=== PATIENT | male | born 1960 | race Caucasian/White ===

== ENCOUNTER 2022-07-19 10:12 | Outpatient (CLI) | payer BC, SELFPAY | END 2022-07-19 10:13 | disposition home or self-care (01) | LOC: AMB 07-26 05:18 | PROVIDERS: Visit Provider Family Medicine | DX: R53.1 Weakness (principal) | CPT/HCPCS: A0425; A0426; A0428 ==

== ENCOUNTER 2022-08-05 13:43 | Outpatient (RCR) | payer BC, SELFPAY | END 2022-12-03 23:59 | disposition home or self-care (01) | PROVIDERS: Visit Provider Family Medicine | DX: I63.9 Cerebral infarction, unspecified (principal); Z51.89 Encounter for other specified aftercare | CPT/HCPCS: 97165 ==

== ENCOUNTER 2023-01-03 03:57 | Emergency (ER) | payer OTHER, SELFPAY ==
[2023-01-03] VITALS (7 sets, daily range): BP systolic 127–159; BP diastolic 74–92; PULSE 60–71; RESP 16; TEMP 36.6; O2SAT 97–99; BMI 21.5
--- NOTE | 2023-01-03 04:08 | ED.CHESTPAIN ---
HPI - Chest Pain General Time Seen by Provider: 04:08 Date Seen: 01/03/23 Chief Complaint: Chest Pain Stated Complaint: Chest Pain Time Seen by Provider: 01/03/23 04:07 Source: patient, RN notes reviewed and old records reviewed Mode of arrival: ambulatory Limitations: no limitations History of Present Illness HPI narrative: 62-year-old male with history of prior CVA who presents today with chest pain. Patient describes 2 episodes of chest pain tonight, for about 8 hours prior to coming and a 2nd about 4 hours prior to coming in. Both for left anterior lower chest , the first lasted about 5 seconds and the second lasted 1-2 seconds. No associated shortness of breath, nausea vomiting. Pain-free now. Related Data Home Medications Medication Instructions Recorded Confirmed losartan 100 1 tab PO DAILY 07/19/22 07/19/22 mg-hydrochlorothiazide 25 mg tablet amlodipine 5 mg tablet 5 mg PO DAILY 01/03/23 01/03/23 aspirin 81 mg tablet,delayed 81 mg PO DAILY 01/03/23 01/03/23 release atorvastatin 20 mg tablet 20 mg PO QPM 01/03/23 01/03/23 escitalopram oxalate 10 mg tablet 10 mg PO DAILY 01/03/23 01/03/23 metoprolol succinate 25 mg 25 mg PO DAILY 01/03/23 01/03/23 tablet,extended release 24 hr Allergies Allergy/AdvReac Type Severity Reaction Status Date / Time No Known Drug Allergies Allergy Verified 01/03/23 04:05 [facility] Medical History Hypertension ?I10 - Essential (primary) hypertension (ICD-10) Social History Smoking Status: Current some day smoker Second hand tobacco smoke exposure: No How often do you have a drink containing alcohol: never How often do you have six or more drinks on one occasion: Never AUDIT-C Alcohol total score: 0 Non-prescribed substance use: denies use Exam Narrative Exam Narrative: General: Well-developed and well-nourished, no acute distress Head: Atraumatic and normocephalic Eyes: Pupils are equal reactive, extraocular motions intact, conjunctiva clear ENT: External nose and ears are normal, posterior pharynx without erythema or exudate Neck: No midline cervical tenderness, full spontaneous range of motion the neck, trachea midline, no adenopathy Heart: Regular rate and rhythm no murmurs or thrills Lungs: Clear to auscultation bilaterally without wheezes or crackles Abdomen: Soft, nontender, nondistended with active bowel sounds Musculoskeletal: No tenderness, deformity, or edema Neurologic: Awake, alert, and oriented x3, no gross focal neurologic deficits, cranial nerves intact as tested Psych: Mood and affect are appropriate Skin: No rashes Const Vital Signs, click to edit/add: Vital Signs - 24 hr 01/03/23 04:00 01/03/23 04:02 01/03/23 04:13 Temperature 97.9 F Pulse Rate 66 Pulse Rate [Pulse Oximeter] 71 Respiratory Rate 16 16 Blood Pressure 159/92 H Blood Pressure [Right Upper Arm] 141/88 H Pulse Oximetry 99 98 99 Oxygen Delivery Method Room Air 01/03/23 04:31 Temperature Pulse Rate 64 Pulse Rate [Pulse Oximeter] Respiratory Rate 16 Blood Pressure 127/88 Blood Pressure [Right Upper Arm] Pulse Oximetry 97 Oxygen Delivery Method Course Course ED Course: Patient seen examined, reviewed prior emergency department visit from June 2022 would patient was seen with acute CVA and transferred to [facility]. Patient does state with chest pain about 8 hours prior to coming emergency department, no pain currently. EKG is reassuring, labs are ordered. Pain described as sharp and lasting seconds at a time, not typical of cardiac symptoms. Reevaluation(s) Time of Reevaluation #1: 04:40 Reevaluation #1: Labs independently interpreted by me with troponin 0, given time since onset of symptoms repeat troponin is not indicated. CBC does not demonstrate any acute anemia or leukocytosis. Remaining labs and chest x-ray pending. Anticipate discharge. Time of Reevaluation #2: 05:06 Reevaluation #2: BNP is normal. Chest x-ray independently interpreted by me does not demonstrate any acute findings. Patient is stable for discharge. Vital Signs Vital signs: Initial Vital Signs Pulse Oximetry 99 01/03/23 04:00 Vital Signs Pulse Oximetry 99 01/03/23 04:00 Temperature 97.9 F 01/03/23 04:02 Pulse Rate 64 01/03/23 04:31 Respiratory Rate 16 01/03/23 04:31 Blood Pressure 127/88 01/03/23 04:31 Pulse Oximetry 97 01/03/23 04:31 Oxygen Delivery Method Room Air 01/03/23 04:02 MDM - Chest Pain Lab Data Labs: Lab Results 01/03/23 01/03/23 Range/Units 04:05 04:15 WBC 4.86 (4.50-11.00) K/uL RBC 4.75 (4.30-5.90) m/uL Hgb 14.9 (13.5-17.5) gm/dL Hct 42.1 (37.0-53.0) % MCV 89 (80-100) fL MCH 31 (26-34) pg MCHC 35 (32-36) gm/dL RDW Coeff of Kennedy 12.0 (11.5-15.5) % Plt Count 279 (140-440) K/uL Neut % (Auto) 72.4 H (42.0-72.0) % Lymph % (Auto) 16.5 L (20-44) % [place] % (Auto) 9.5 (0.0-11.0) % Eos % (Auto) 1.2 (0.0-7.0) % Baso % (Auto) 0.2 (0.0-3.0) % Neut # (Auto) 3.50 (1.7-7.0) K/uL Lymph # (Auto) 0.80 L (0.90-2.90) K/uL [place] # (Auto) 0.50 (0.00-0.90) K/UL Eos # (Auto) 0.06 (0.00-0.50) K/uL Baso # (Auto) 0.01 (0.00-0.30) K/uL Abs Immat Gran (auto) 0.01 (0.00-0.30) K/uL Imm/Tot Granulo (auto) 0.2 % Sodium 129 L (135-149) mmol/L Potassium 3.6 (3.6-5.1) mmol/L Chloride 96 (96-114) mmol/L Carbon Dioxide 25 (20-32) mmol/L Anion Gap 8 (7-15) mEq/L BUN 11 (7-30) mg/dL Creatinine 0.7 (0.5-1.5) mg/dL Estimated Creat Clear 74.65 Estimated GFR 105 ml/min Glucose 165 H (60-115) mg/dL Calcium 9.5 (8.4-10.6) mg/dL Magnesium 2.1 (1.5-2.6) mg/dL NT-Pro-B Natriuret Pep 51 pg/mL POC Troponin I 0.00 L (0.01-0.04) ng/ml ECG Data Attestation: I personally reviewed and interpreted this ECG as follows: ECG interpretation date: 01/03/23 ECG interpretation time: 04:03 Prior ECG tracings: available for review Interpretation: Normal sinus rhythm rate 68, no acute ST elevations or depressions, normal intervals, normal axis, AL 152, QTC 421. Compared to prior of June 2022, no acute changes. Discharge Plan Discharge Clinical Impression: Chest pain Patient Disposition: Home, Self-Care Condition: Stable Instructions: Noncardiac Chest Pain (ED) Additional Instructions: Continue your usual medication. Consider taking Tylenol every 6 hours for the next couple of days to help with chest wall pain. Follow-up with your primary care doctor in 2-4 days Activity Level: No Restrictions Discharge Diet: Regular Prescriptions: No Action losartan-hydrochlorothiazide 100-25 mg tablet 1 tab PO DAILY atorvastatin 20 mg tablet 20 mg PO QPM amlodipine 5 mg tablet 5 mg PO DAILY aspirin 81 mg tablet,delayed release (DR/EC) 81 mg PO DAILY metoprolol succinate 25 mg tablet extended release 24 hr 25 mg PO DAILY escitalopram oxalate 10 mg tablet 10 mg PO DAILY Follow Up/Referrals: Provider,Not a Local [Primary Care Provider] - Stand Alone Forms: Sencha Info Instructions
--- NOTE | 2023-01-03 04:17 | CRLHL7_ITS ---
For Patients: As a result of the Century Cures Act, medical imaging exams and procedure reports are released immediately into your electronic medical record. You may view this report before your referring provider. If you have questions, please contact your health care provider. INDICATION: Chest pain TECHNIQUE: Chest 1 views. COMPARISON: July 19, 2022 FINDINGS: Cardiovascular and mediastinum: Heart size and vasculature are normal in caliber and appearance. Lungs and pleural spaces: Lungs are clear. No sign of infiltrate. No sign of pleural effusion. No pneumothorax. Bones and soft tissues: No significant findings. IMPRESSION: No evidence of acute cardiopulmonary process. Dictated by Varun Bundy MD @ 01/03/2023 5:30:18 AM (Electronically Signed)
[2023-01-03 04:24] LABS: Basophils Absolute Auto 0.01 K/uL (0.00-0.30); Basophils Percent Auto 0.2 % (0.0-3.0); Eosinophils Absolute Auto 0.06 K/uL (0.00-0.50); Eosinophils Percent Auto 1.2 % (0.0-7.0); Hematocrit 42.1 % (37.0-53.0); Hemoglobin* 14.9 gm/dL (13.5-17.5); Immature Granulocytes Abs Auto 0.01 K/uL (0.00-0.30); Immature Granulocytes Pct Auto 0.2 %; Lymphocytes Percent Auto 16.5 % (20-44); Mean Corpuscular HGB Conc 35 gm/dL (32-36); Mean Corpuscular Hemoglobin 31 pg (26-34); Mean Corpuscular Volume 89 fL (80-100); Monocytes Percent Auto 9.5 % (0.0-11.0); Neutrophils Percent Auto 72.4 % (42.0-72.0); Platelet Count* 279 K/uL (140-440); Red Blood Count 4.75 m/uL (4.30-5.90); White Blood Count* 4.86 K/uL (4.50-11.00)
[2023-01-03 04:38] LABS: Slide Review Reflex No
[2023-01-03 04:44] LABS: Chloride* 96 mmol/L (96-114); Sodium* 129 mmol/L (135-149)
[2023-01-03 04:45] LABS: Potassium* 3.6 mmol/L (3.6-5.1)
[2023-01-03 04:47] LABS: Creatinine* 0.7 mg/dL (0.5-1.5); Est. Creatinine Clearance* 74.65; Estimated Glomerular Filt Rate 105 ml/min
[2023-01-03 04:48] LABS: Anion Gap 8 mEq/L (7-15); Blood Urea Nitrogen* 11 mg/dL (7-30); Calcium* 9.5 mg/dL (8.4-10.6); Carbon Dioxide* 25 mmol/L (20-32); Glucose* 165 mg/dL (60-115); Magnesium* 2.1 mg/dL (1.5-2.6)
[2023-01-03 04:57] LABS: NT Pro B Type NatriureticPept* 51 pg/mL
== END 2023-01-03 05:22 | disposition home or self-care (01) ==
LOC: ED 05:15
PROVIDERS: Emergency Provider Family Medicine
DX: R07.9 Chest pain, unspecified (principal)
CPT/HCPCS: 36415; 71045; 80048; 83735; 83880; 84484; 85025; 93005; 94761; 99284; 99285

== ENCOUNTER 2023-06-22 23:41 | Emergency (ER) | payer BC, SELFPAY ==
[2023-06-22 23:50] VITALS: BP 164/93; PULSE 62; RESP 16; TEMP 36.6; O2SAT 99; BMI 20.7
--- NOTE | 2023-06-23 00:31 | XR_ITS ---
Patient: GREG PENG Facility:?[facility] Patient ID:?[id number] Site Patient ID:?[id number]. Site :?[id number] Study:?XRay-Extremity Right WRIST-06/23/2023 12:44:33 AM Ordering Physician:CARLI Final Report: INDICATION: Pain and swelling. TECHNIQUE: Right wrist 3 views. COMPARISON: None. FINDINGS: No acute fractures or malalignment. Moderate 1st CMC joint degenerative changes. Soft tissue swelling. IMPRESSION: No acute osseous abnormality. Dictated by Hunter Smith MD @ 06/23/2023 12:59:02 AM Signed by:?Hunter Smith MD @06/23/2023 12:59:02 AM (Electronic Signature)
--- NOTE | 2023-06-23 00:35 | ED_ITS ---
HPI - General Adult General Chief complaint: Extremity Pain/Injury, Upper Stated complaint: right wrist swelling/injury Time Seen by Provider: 06/23/23 00:23 Source: patient Mode of arrival: ambulatory Limitations: no limitations History of Present Illness HPI narrative: 62-year-old male presents the emergency department in the wee hours because of pain in the right wrist. Started hurting at around 6:00 a.m. this morning which is about 18 hours prior to arrival and now he presents in the wee hours. He states that he has not tried any Tylenol, ibuprofen, ice or other intervention. There was no pop or snap. 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 No prior history of injury, trauma or surgery to this area. No history of inflammatory arthritis, gout or other similar illness. No difficulty moving the fingers. Pain is kind of diffuse, nonfocal. 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 No fever, no other joints affected. He does take a thiazide. He is otherwise feeling well. No fever, no stool or urinary changes, no rashes. Past medical history notable for hypertension, hyperlipidemia. Social and medical history reviewed. Allergies none known. ROS notable for the musculoskeletal symptoms as described above, otherwise denies times 12 systems. Related Data Home Medications Medication Instructions Recorded Confirmed losartan 100 1 tab PO DAILY 07/19/22 03/15/23 mg-hydrochlorothiazide 25 mg tablet amlodipine 5 mg tablet 5 mg PO DAILY 01/03/23 03/15/23 aspirin 81 mg tablet,delayed 81 mg PO DAILY 01/03/23 03/15/23 release atorvastatin 20 mg tablet 20 mg PO QPM 01/03/23 03/15/23 escitalopram oxalate 10 mg tablet 10 mg PO DAILY 01/03/23 03/15/23 metoprolol succinate 25 mg 25 mg PO DAILY 01/03/23 03/15/23 tablet,extended release 24 hr Previous Rx's Medication Instructions Recorded benzonatate 100 mg capsule 100 mg PO BID PRN cough #10 caps 03/15/23 prednisone 20 mg tablet 20 mg PO DAILY #5 tabs 06/23/23 Allergies Allergy/AdvReac Type Severity Reaction Status Date / Time No Known Drug Allergies Allergy Verified 03/15/23 09:28 [facility] Medical History Hypertension ?I10 - Essential (primary) hypertension (ICD-10) Social History Smoking Status: Current some day smoker What tobacco products do you use: cigarettes Smoking packs per day: 0.25 Smoking cigarettes per day: 5.0 Second hand tobacco smoke exposure: No How often do you have a drink containing alcohol: 4 or more times a week How many standard drinks containing alcohol do you have on a typical day: 5 or 6 How often do you have six or more drinks on one occasion: Daily or almost daily AUDIT-C Alcohol total score: 10 Non-prescribed substance use: denies use Exam Const: Vital Signs, click to edit/add: Vital Signs - 24 hr 06/22/23 23:50 Temperature 97.9 F Pulse Rate [Pulse Oximeter] 62 Respiratory Rate 16 Blood Pressure [Ri ght Upper Arm] 164/93 H Pulse Oximetry 99 Documenting provider has reviewed patient's vital signs: yes Common normals: no apparent distress General appearance: cooperative and well kempt HENMT: Common normals: normocephalic Head and scalp: normocephalic Face and sinus: normal facial exam Mouth: oral and palatal mucosa normal Eye: Common normals: conjunctivae normal General eye: normal appearance of both eyes Conjunctiva: conjunctiva(e) normal Neck & C-Spine: General: normal visual inspection Resp: Common normals: normal respiratory effort, no use of accessory muscles and clear to auscultation bilaterally Effort & inspection: able to speak in complete sentences Auscultation: clear to auscultation bilaterally Cardio: Common normals: regular rate, regular rhythm, S1 normal heart sound, S2 normal heart sound and no murmurs Rate: regular rate Rhythm: regular rhythm Heart sounds: S1 normal and S2 normal Extremity: Other: Right wrist with mild diffuse swelling, slightly warm to the touch on the dorsal side. No signs of trauma to the skin. Normal range of motion. No point bony tenderness, diffuse tenderness present. Normal tendon function, strength of hand. Opposite left wrist is examined and other than some mild bony arthritic changes, there are no signs of inflammation, redness or similar swelling. Normal range of motion of both elbows. All fingers normal. Neuro: Speech: speech normal Motor exam: no movement abnormalities noted Psych: Appearance: well kempt Mood and affect: euthymic mood Insight: fair Judgement: fair Skin: Common normals: no rashes or lesions noted General skin exam: no rashes or lesions noted Course Course ED Course: Right wrist warmth, pain and mild swelling with minimal trauma. It sounds as though he is a fairly regular drinker of alcohol, he also takes a thiazide. He has multiple risk factors for gout. This certainly could be a strain, low suspicion for fracture. Will obtain x-ray. He was agreeable to basic blood work to look for inflammatory arthropathy, uric acid level, CBC. If inconclusive, would recommend outpatient testing for Lyme and other non typical etiologies. Will give Tylenol 1000 mg once daily and await findings. Reevaluation(s) Time of Reevaluation #1: 01:55 Reevaluation #1: Counseled patient on lab findings, overall quite reassuring. Suspect flare-up of osteoarthritis and or possibly gout. Treatment would be the same. Counseled patient on mild electrolyte abnormalities, will give p.o. potassium. Counseled to cut his alcohol down to 6 drinks per week. Discussed primary care follow-up if symptoms are not improving in a few days and or if he has repeated episodes that would warrant further testing for other inflammatory conditions, infections and/or consideration of switching around his medications. Prednisone 40 mg given in ED, then 20 mg once daily for a total of 5 days. Counseled on Tylenol, rest for today, resume typical duties on Tuesday. He verbalizes understanding and agreement. Alarm symptoms reviewed. Vital Signs Vital signs: Initial Vital Signs Temperature 97.9 F 06/22/23 23:50 Temperature Source Temporal Artery Scan 06/22/23 23:50 Pulse Rate 62 06/22/23 23:50 Respiratory Rate 16 06/22/23 23:50 Blood Pressure 164/93 H 06/22/23 23:50 Blood Pressure Mean 116 H 06/22/23 23:50 Blood Pressure Position Sitting 06/22/23 23:50 Pulse Oximetry 99 06/22/23 23:50 Vital Signs Temperature 97.9 F 06/22/23 23:50 Pulse Rate 62 06/22/23 23:50 Respiratory Rate 16 06/22/23 23:50 Blood Pressure 164/93 H 06/22/23 23:50 Pulse Oximetry 99 06/22/23 23:50 Temperature 97.9 F 06/22/23 23:50 Pulse Rate 62 06/22/23 23:50 Respiratory Rate 16 06/22/23 23:50 Blood Pressure 164/93 H 06/22/23 23:50 Pulse Oximetry 99 06/22/23 23:50 Medications Administered Medications: Generic Name Dose Route Start Last Admin Trade Name Solitario PRN Reason Stop Dose Admin Acetaminophen 1,000 mg 06/23/23 00:31 06/23/23 00:38 Acetaminophen 500 Mg Tablet PO 06/23/23 00:32 1,000 mg ONCE ONE Administration Potassium Chloride 40 meq 06/23/23 01:50 06/23/23 01:53 Potassium Chloride 10 Meq Capsule Er PO 06/23/23 01:51 40 meq ONCE ONE Administration Prednisone 40 mg 06/23/23 01:49 06/23/23 01:53 Prednisone 20 Mg Tablet PO 06/23/23 01:50 40 mg ONCE ONE Administration Medical Decision Making Lab Data Lab results reviewed: Yes I reviewed the patient's lab results Lab results narrative: Mild hyponatremia and hypokalemia, likely secondary to thiazide use and or heavy regular alcohol use. Will replace potassium p.o., counseled on alcohol intake. Uric acid levels are quite low, inflammatory markers negative. Labs: Lab Results 06/23/23 Range/Units 00:51 WBC 5.97 (4.50-11.00) K/uL RBC 4.38 (4.30-5.90) m/uL Hgb 13.5 (13.5-17.5) gm/dL Hct 38.4 (37.0-53.0) % MCV 88 (80-100) fL MCH 31 (26-34) pg MCHC 35 (32-36) gm/dL RDW Coeff of Kennedy 12.3 (11.5-15.5) % Plt Count 226 (140-440) K/uL Neut % (Auto) 64.3 (42.0-72.0) % Lymph % (Auto) 26.1 (20-44) % [place] % (Auto) 7.0 (0.0-11.0) % Eos % (Auto) 2.0 (0.0-7.0) % Baso % (Auto) 0.3 (0.0-3.0) % Neut # (Auto) 3.83 (1.7-7.0) K/uL Lymph # (Auto) 1.56 (0.90-2.90) K/uL [place] # (Auto) 0.40 (0.00-0.90) K/UL Eos # (Auto) 0.12 (0.00-0.50) K/uL Baso # (Auto) 0.02 (0.00-0.30) K/uL Abs Immat Gran (auto) 0.02 (0.00-0.30) K/uL Imm/Tot Granulo (auto) 0.3 % Sodium 129 L (135-149) mmol/L Potassium 3.2 L (3.6-5.1) mmol/L Chloride 96 (96-114) mmol/L Carbon Dioxide 22 (20-32) mmol/L Anion Gap 11 (7-15) mEq/L BUN 13 (7-30) mg/dL Creatinine 0.5 (0.5-1.5) mg/dL Estimated Creat Clear 69.68 Estimated GFR 116 ml/min Glucose 87 (60-115) mg/dL Uric Acid 3.5 (2.2-8.4) mg/dL Calcium 8.8 (8.4-10.6) mg/dL C-Reactive Protein < 0.5 L (0.5-1.0) mg/dL Imaging Data wrist XR R: Attestation: I have reviewed the pertinent imaging results. My impression: Mild osteoarthritic changes, no fracture Radiologist's impression: IMPRESSION: No acute osseous abnormality. Discharge Plan Discharge Clinical Impression: Gout Patient Disposition: Home, Self-Care Condition: Stable Instructions: Gout (ED) Additional Instructions: As we discussed, there are no signs of fracture on your x-ray, just some chronic arthritis changes. This is just from a lifetime of good use with your hands. The pain is either from a mild flare-up of gout or a flare up of your arthritis. Thankfully, both treatments are the same. I have started you on prednisone, anti-inflammatory medicine. Your given a dose here in the emergency department in the wee hours this morning. You will pick up attendant the additional supply from your pharmacy and take this once daily for the next 5 days. Your next dose will be early this afternoon, preferably around 2:00 p.m.. Do not take after 5:00 p.m. as it will keep you awake at night. You will then continue taking the medicine once daily in the morning with food Tuesday, Tuesday, Tuesday and Tuesday morning. It is safe for you to use your hands and lift things but it may be more painful to do so. For pain, use Tylenol 1000 mg every 6 hours. I do not think that a brace will be helpful for you. If you keep getting episodes, would like for you to follow- up with her primary care provider to discuss further testing for alternative diagnoses, consider switching around your medications to eliminate the hydrochlorothiazide as it could potentially contribute to gout. Your blood work does show that your sodium and potassium levels were slightly low. You do need to cut down on your alcohol to no more than 6 alcoholic beverages per week. This would also dramatically reduce your risk of gout far more than any medication changes. Make a follow-up appointment with her primary care provider if things are not starting to improve within 3 days. Activity Level: Activity as Tolerated Discharge Diet: Regular Prescriptions: New prednisone 20 mg tablet 20 mg PO DAILY Qty: 5 0RF No Action benzonatate 100 mg capsule 100 mg PO BID PRN (Reason: cough) Qty: 10 0RF losartan-hydrochlorothiazide 100-25 mg tablet 1 tab PO DAILY atorvastatin 20 mg tablet 20 mg PO QPM amlodipine 5 mg tablet 5 mg PO DAILY aspirin 81 mg tablet,delayed release (DR/EC) 81 mg PO DAILY metoprolol succinate 25 mg tablet extended release 24 hr 25 mg PO DAILY escitalopram oxalate 10 mg tablet 10 mg PO DAILY Follow Up/Referrals: Provider,Not a Local [Primary Care Provider] - Stand Alone Forms: [employer] Info Instructions
[2023-06-23] MEDS: ACETAMINOPHEN 500 MG TABLET 1000 MG PO (00:38)
[2023-06-23 01:06] LABS: Basophils Absolute Auto 0.02 K/uL (0.00-0.30); Basophils Percent Auto 0.3 % (0.0-3.0); Eosinophils Absolute Auto 0.12 K/uL (0.00-0.50); Hematocrit 38.4 % (37.0-53.0); Hemoglobin* 13.5 gm/dL (13.5-17.5); Immature Granulocytes Abs Auto 0.02 K/uL (0.00-0.30); Immature Granulocytes Pct Auto 0.3 %; Lymphocytes Absolute Auto 1.56 K/uL (0.90-2.90); Lymphocytes Percent Auto 26.1 % (20-44); Mean Corpuscular HGB Conc 35 gm/dL (32-36); Mean Corpuscular Hemoglobin 31 pg (26-34); Mean Corpuscular Volume 88 fL (80-100); Neutrophils Absolute Auto 3.83 K/uL (1.7-7.0); Neutrophils Percent Auto 64.3 % (42.0-72.0); Platelet Count* 226 K/uL (140-440); RDW Coefficient of Variation % 12.3 % (11.5-15.5); Red Blood Count 4.38 m/uL (4.30-5.90); White Blood Count* 5.97 K/uL (4.50-11.00)
[2023-06-23 01:11] LABS: Slide Review Reflex No
[2023-06-23 01:23] LABS: Chloride* 96 mmol/L (96-114); Potassium* 3.2 mmol/L (3.6-5.1); Sodium* 129 mmol/L (135-149)
[2023-06-23 01:26] LABS: Anion Gap 11 mEq/L (7-15); Blood Urea Nitrogen* 13 mg/dL (7-30); Carbon Dioxide* 22 mmol/L (20-32); Creatinine* 0.5 mg/dL (0.5-1.5); Est. Creatinine Clearance* 69.68; Estimated Glomerular Filt Rate 116 ml/min
[2023-06-23 01:27] LABS: Calcium* 8.8 mg/dL (8.4-10.6); Glucose* 87 mg/dL (60-115); Uric Acid* 3.5 mg/dL (2.2-8.4)
[2023-06-23 01:30] LABS: C Reactive Protein* < 0.5 mg/dL (0.5-1.0)
[2023-06-23] MEDS: POTASSIUM CHLORIDE 10 MEQ CAPSULE ER 40 MEQ PO (01:53)
[2023-06-23] MEDS: predniSONE 20 MG TABLET 40 MG PO (01:53)
[2023-06-23 01:58] VITALS: BP 158/79; PULSE 76; RESP 16; TEMP 36.6; O2SAT 98
== END 2023-06-23 02:03 | disposition home or self-care (01) ==
PROVIDERS: Emergency Provider Family Medicine
DX: M10.9 Gout, unspecified (principal)
CPT/HCPCS: 36415; 73110; 80048; 84550; 85025; 86140; 99283; 99284; A9270; J7512